=== PATIENT | male | born 1990 | race African-American/Black ===

== ENCOUNTER 2016-08-29 19:25 | Emergency (ER) | payer SELFPAY ==
[2016-08-29] MEDS ORDERED: MAG HYDROX/AL HYDROX/SIMETH SUSP 30 ML UDCUP PO ONE (21:54)
[2016-08-29] MEDS ORDERED: METOCLOPRAMIDE HCL ORAL SOLN 10 MG/10 ML UDCUP PO ONE (21:54)
[2016-08-29] MEDS ORDERED: LIDOCAINE 2% VISCOUS SOLN 20 ML UDCUP PO ONE (21:54)
--- NOTE | 2016-08-29 22:31 | ER Document Report ---
ED General - General Chief Complaint: Difficulty Swallowing Stated Complaint: TROUBLE SWALLOWING Notes: Patient is a 26-year-old male with past medical history of gastroesophageal reflux who presents with a sensation of something being stuck in his chest and epigastric abdominal pain. Does describe the pain is abdomen has a mild, dull, constant, burning pain. Nothing improves or worsens his pain. States his symptoms started after having a heavy meal 36 hours ago. He has a history of similar symptoms in the past. He has not tried anything to improve his symptoms. Nothing been noted to worsen his symptoms. He has not had any vomiting. He has passed flatus and had a bowel movement since onset. No prior history of abdominal surgeries. No cardiac history. Denies any history of DVT or pulmonary embolus. No pleuritic chest pain. TRAVEL OUTSIDE OF THE [place] IN LAST 30 DAYS: No - Related Data Allergies/Adverse Reactions: No Known Allergies Allergy (Verified 08/29/16 19:45) Past Medical History - General Information source: Patient - Social History Smoking Status: Never Smoker Frequency of alcohol use: None Drug Abuse: None Lives with: Spouse/Significant other Family History: Malignancy - father lung cancer Neurological Medical History: Reports: Hx Migraine Renal/ Medical History: Denies: Hx Peritoneal Dialysis - Immunizations Immunizations up to date: No Hx Diphtheria, Pertussis, Tetanus Vaccination: Yes Review of Systems - Review of Systems Notes: Constitutional: Negative for fever. HENT: Negative for sore throat. Eyes: Negative for visual changes. Cardiovascular: Chest discomfort Respiratory: Negative for shortness of breath. Gastrointestinal: Positive for abdominal pain and nausea Genitourinary: Negative for dysuria. Musculoskeletal: Negative for back pain. Skin: Negative for rash. Neurological: Negative for headaches, weakness or numbness. 10 point ROS negative except as marked above and in HPI. Physical Exam - Vital signs Vitals: Temp Pulse Resp BP Pulse Ox 98.8 F 78 22 H 142/93 H 97 08/29/16 19:47 08/29/16 19:47 08/29/16 19:47 08/29/16 19:47 08/29/16 19:47 Interpretation: Normal Notes: PHYSICAL EXAMINATION: GENERAL: Well-appearing, well-nourished and in no acute distress. HEAD: Atraumatic, normocephalic. EYES: Pupils equal round and reactive to light, extraocular movements intact, sclera anicteric, conjunctiva are normal. ENT: nares patent, oropharynx clear without exudates. Moist mucous membranes. NECK: Normal range of motion, supple without lymphadenopathy LUNGS: Breath sounds clear to auscultation bilaterally and equal. No wheezes rales or rhonchi. HEART: Regular rate and rhythm without murmurs ABDOMEN: Soft, mild epigastric tenderness to palpation, normoactive bowel sounds. No guarding, no rebound. No masses appreciated. EXTREMITIES: Normal range of motion, no pitting or edema. No cyanosis. NEUROLOGICAL: No focal neurological deficits. Moves all extremities spontaneously and on command. PSYCH: Normal mood, normal affect. SKIN: Warm, Dry, normal turgor, no rashes or lesions noted. Course - Re-evaluation Re-evalutation: 08/29/16 22:30 Patient presents with epigastric abdominal pain with associated reflux symptoms most consistent with likely gastritis. Patient has no focal abdominal tenderness on examination. Lipase is normal. No LFT changes. Based on history and exam, I do not suspect ACS, pulmonary embolus, SBO, mesenteric ischemia, acute pancreatitis, biliary pathology, or an abdominal aortic dissection. Patient has had improvement of symptoms here with a GI cocktail. At this time will discharge with return precautions and follow-up recommendations. Verbal discharge instructions given a the bedside and opportunity for questions given. Medication warnings reviewed. Patient is in agreement with this plan and has verbalized understanding of return precautions and the need for primary care follow-up in the next 24-72 hours. - Vital Signs Vital signs: Temp Pulse Resp BP Pulse Ox 98.5 F 60 16 137/90 H 99 08/30/16 00:37 08/30/16 00:37 08/30/16 00:37 08/30/16 00:37 08/30/16 00:37 - Laboratory Result Diagrams: 08/29/16 22:50 - EKG Interpretation by Me Additional EKG results interpreted by me: 08/30/16 02:42 Normal sinus rhythm. Rate 69. Early repolarization. QTc is 399. Discharge - Discharge Clinical Impression: Esophageal reflux Qualifiers: Esophagitis presence: with esophagitis Qualified Code(s): K21.0 - Gastro- esophageal reflux disease with esophagitis Condition: Good Disposition: HOME, SELF-CARE Additional Instructions: Your symptoms appear to be most consistent with stomach or upper intestinal irritation. Your evaluation here today has not demonstrated an alternative cause for your symptoms. Please begin taking famotidine 40 mg in the morning and 40 mg at night. This medicine can be purchased directly [id number]. You may also take medicine such as Pepto-Bismol or Tums to assist with your pain. Please follow closely with your primary care doctor in the next 24-48 hours regarding today's emergency department visit. Please return immediately if you develop persistent vomiting, worsening pain, again having bloody bowel movements, develop a fever greater than 100.4F, or have any other symptoms that are worrisome to you.
[2016-08-29 23:26] LABS: ALANINE AMINOTRANSFERASE 46 U/L (21-72); ALBUMIN 4.8 g/dL (3.5-5.0); ALKALINE PHOSPHATASE 105 U/L (38-126); ANION GAP 15 (5-19); ASPARTATE AMINO TRANSFERASE 37 U/L (17-59); BILIRUBIN,DIRECT 0.1 mg/dL (0.0-0.4); BILIRUBIN,TOTAL 0.7 mg/dL (0.2-1.3); BLOOD UREA NITROGEN 16 mg/dL (7-20); CARBON DIOXIDE 24 mmol/L (22-30); CHLORIDE 105 mmol/L (98-107); CREATININE RESULT 0.76 mg/dL (0.52-1.25); GLUCOSE 90 mg/dL (75-110); LIPASE 195.7 U/L (23-300); SODIUM 143.7 mmol/L (137-145); TOTAL PROTEIN 7.7 g/dL (6.3-8.2)
[2016-08-30 00:39] VITALS: BP 137/90
--- NOTE | 2016-08-30 08:28 | EKG REPORT ---
SEVERITY:- NORMAL ECG - SINUS RHYTHM ST ELEV, PROBABLE NORMAL EARLY REPOL PATTERN : Confirmed by: Candida Gannon MD 30-Aug-2016 08:28:17
== END 2016-08-30 00:37 | disposition home or self-care (01) ==
LOC: ER 19:25
DX: K21.0 Gastro-esophageal reflux disease with esophagitis (principal); R10.13 Epigastric pain; R09.89 Other specified symptoms and signs involving the circulatory and respiratory systems; R11.0 Nausea
CPT/HCPCS: 93005; 99284; 36415; 83690; 80053; 84484; 93010; J3490

== ENCOUNTER 2017-11-28 22:31 | Emergency (ER) | payer SELFPAY ==
[2017-11-28 22:38] VITALS: BP 176/110
--- NOTE | 2017-11-28 23:42 | RADIOLOGY REPORT (SQ) ---
PROCEDURE: X-RAY OF THE RIGHT HAND-3 VIEWS CLINICAL HISTORY: Right hand injury INDICATION: M as above COMPARISON: None . TECHNIQUE: 3.0 Views of the right hand were done. FINDINGS: There is no evidence of acute fractures or dislocation involving the bones of the right wrist and hand. There is no visualization of any periosteal reactions. There is no visualization of chondrocalcinosis in the region of the wrist joint. The wrist joint arches are well-maintained. There is no evidence of ulnar variance. There are no focal erosive bony changes. The joint spaces of the hand and the wrist are relatively well-maintained. The bone mineralization is normal for patient's age and sex. The soft tissues are radiographically unremarkable. There is no visualization of any radiopaque foreign bodies in the evaluated soft tissues. If the wrist pain persists, repeat films can be done in 7-10 days interval to rule out occult fractures. Alternatively an MRI of the wrist can be obtained. IMPRESSION: Negative for acute bony trauma involving the right hand Place of interpretation: Teleradiology.
[2017-11-28] MEDS ORDERED: NAPROXEN 250 MG TABLET PO ONE (23:51)
--- NOTE | 2017-11-28 23:53 | ER Document Report ---
ED General - General Chief Complaint: Finger Injury Stated Complaint: RIGHT RING FINGER INJURY Time Seen by Provider: 11/28/17 23:43 Mode of Arrival: Ambulatory Information source: Patient Notes: 27-year-old male presents with crush injury of the finger just prior to arrival. Patient notes that the finger got crushed in a car door, denies any other concerns TRAVEL OUTSIDE OF THE [place] IN LAST 30 DAYS: No - HPI Onset: Just prior to arrival Onset/Duration: Sudden Quality of pain: Achy Severity: Mild Pain Level: 1 Associated symptoms: Other Exacerbated by: Denies Relieved by: Denies Similar symptoms previously: No Recently seen / treated by doctor: No - Related Data Allergies/Adverse Reactions: No Known Allergies Allergy (Verified 08/29/16 19:45) Past Medical History - Social History Smoking Status: Unknown if Ever Smoked Cigarette use (# per day): No Chew tobacco use (# tins/day): No Smoking Education Provided: No Frequency of alcohol use: None Drug Abuse: None Family History: Malignancy - father lung cancer Patient has suicidal ideation: No Patient has homicidal ideation: No Neurological Medical History: Reports: Hx Migraine Renal/ Medical History: Denies: Hx Peritoneal Dialysis - Immunizations Immunizations up to date: No Hx Diphtheria, Pertussis, Tetanus Vaccination: Yes Review of Systems - Review of Systems Notes: REVIEW OF SYSTEMS: CONSTITUTIONAL : Denies fever, chills, or sweats. Denies recent illness. EENT: Denies eye, ear, throat, or mouth pain or symptoms. Denies nasal or sinus congestion or discharge. Denies throat, tongue, or mouth swelling or difficulty swallowing. CARDIOVASCULAR: Denies chest pain. Denies palpitations or racing or irregular heart beat. Denies ankle edema. RESPIRATORY: Denies cough, cold, or chest congestion. Denies shortness of breath, difficulty breathing, or wheezing. GASTROINTESTINAL: Denies abdominal pain or distention. Denies nausea, vomiting , or diarrhea. Denies blood in vomitus, stools, or per rectum. Denies black, tarry stools. Denies constipation. GENITOURINARY: Denies difficulty urinating, painful urination, burning, frequency, blood in urine, or discharge. MUSCULOSKELETAL: Finger injury SKIN: Denies rash, lesions or sores. HEMATOLOGIC : Denies easy bruising or bleeding. LYMPHATIC: Denies swollen, enlarged glands. NEUROLOGICAL: Denies confusion or altered mental status. Denies passing out or loss of consciousness. Denies dizziness or lightheadedness. Denies headache. Denies weakness or paralysis or loss of use of either side. Denies problems with gait or speech. Denies sensory loss, numbness, or tingling. Denies seizures. PSYCHIATRIC: Denies anxiety or stress. Denies depression, suicidal ideation, or homicidal ideation. ALL OTHER SYSTEMS REVIEWED AND NEGATIVE. Dictation was performed using [employer] voice recognition software PHYSICAL EXAMINATION: GENERAL: Well-appearing, well-nourished and in no acute distress. HEAD: Atraumatic, normocephalic. EYES: Pupils equal round and reactive to light, extraocular movements intact, sclera anicteric, conjunctiva are normal. ENT: Nares patent, oropharynx clear without exudates. Moist mucous membranes. NECK: Normal range of motion, supple without lymphadenopathy LUNGS: Breath sounds clear to auscultation bilaterally and equal. No wheezes rales or rhonchi. HEART: Regular rate and rhythm without murmurs ABDOMEN: Soft, nontender, nondistended abdomen. No guarding, no rebound. No masses appreciated. Musculoskeletal: Normal range of motion, no pitting or edema. No cyanosis. NEUROLOGICAL: Cranial nerves grossly intact. Normal speech, normal gait. Normal sensory, motor exams PSYCH: Normal mood, normal affect. SKIN: Mild edema with the right hand fourth digit of the distal phalanx Physical Exam - Vital signs Vitals: Temp Pulse Resp BP Pulse Ox 98.7 F 71 18 176/110 H 98 11/28/17 22:37 11/28/17 22:37 11/28/17 22:37 11/28/17 22:37 11/28/17 22:37 Course - Re-evaluation Re-evalutation: 11/28/17 23:57 Neuro exam is appropriate patient overall looks well, patient given naproxen x- ray was negative patient is stable for discharge After performing a Medical Screening Examination, I estimate there is LOW risk for ACUTE TENDON RUPTURE, COMPARTMENT SYNDROME, or OPEN FRACTURE, thus I consider the discharge disposition reasonable. Also, there is no evidence or peritonitis, sepsis, or toxicity. I have reevaluated this patient multiple times and no significant life threatening changes are noted. The patient and I have discussed the diagnosis and risks, and we agree with discharging home to follow-up with their primary doctor with the understanding that symptoms and presentations can change. We also discussed returning to the Emergency Department immediately if new or worsening symptoms occur. We have discussed the symptoms which are most concerning (e.g., bloody stool, fever, changing or worsening pain, vomiting) that necessitate immediate return. - Vital Signs Vital signs: Temp Pulse Resp BP Pulse Ox 98.7 F 71 18 176/110 H 98 11/28/17 22:37 11/28/17 22:37 11/28/17 22:37 11/28/17 22:37 11/28/17 22:37 - Diagnostic Test Radiology reviewed: Image reviewed, Reports reviewed Discharge - Discharge Clinical Impression: Crush injury Condition: Stable Disposition: HOME, SELF-CARE Instructions: Sprained Finger ([facility]) Additional Instructions: Follow up with your physician tomorrow for further care or return to the ED IMMEDIATELY if symptoms worsen or new concerns occur. If you cannot afford to follow up with your primary care physician a list of low cost clinics have been provided at the end of your discharge papers as well. Prescriptions: Naproxen 500 mg PO BID #10 tablet
== END 2017-11-29 00:10 | disposition home or self-care (01) ==
LOC: ER 22:31
DX: S69.91XA Unspecified injury of right wrist, hand and finger(s), initial encounter (principal); W23.1XXA Caught, crushed, jammed, or pinched between stationary objects, initial encounter
CPT/HCPCS: 99283

== ENCOUNTER 2018-07-07 15:13 | Emergency (ER) | payer SELFPAY ==
[2018-07-07 16:22] VITALS: BP 182/117
[2018-07-07] MEDS ORDERED: OXYCODONE-ACETAMINOPHEN 5-325 MG TABLET PO ONE (16:27)
--- NOTE | 2018-07-07 16:29 | ER Document Report ---
ED General - General Chief Complaint: Toothache Stated Complaint: TOOTHACHE Time Seen by Provider: 07/07/18 16:17 Notes: Patient is a 28-year-old male that presents to the emergency department for chief complaint of left dental pain. Patient's been having this pain for approximately 2 and half weeks now, seemingly in the left lower portion of the back of his mouth. Describes the pain as a constant aching sensation rates it currently as an 8 out of 10, he does not recall taking any teeth off, he is never had dental procedures in the past. Denies any any fevers, chills, night sweats, nausea, vomiting or abdominal pain, no other complaints at this time. Past Medical History: Denies chronic medical conditions Past Surgical History: Denies surgical history Social History: Admits to drinking alcohol socially, denies tobacco or drug use. Family History: Reviewed and noncontributory for presenting illness Allergies: Reviewed, see documented allergy list. REVIEW OF SYSTEMS: Other than noted above, the 12 point review of systems was reviewed with the patient and were negative, all pertinent findings are included in the HPI. PHYSICAL EXAMINATION: Vital signs reviewed, nursing noted reviewed. GENERAL: Well-appearing, well-nourished and in no acute distress. HEAD: Atraumatic, normocephalic. EYES: Eyes appear normal, extraocular movements intact, sclera anicteric, conjunctiva are normal. ENT: nares patent, oropharynx clear without exudates. Moist mucous membranes. The left tooth #17 appears to be impacted up against tooth #18, likely cause the patient's pain, there is mild erythema but no abscess. NECK: Normal range of motion, supple without lymphadenopathy LUNGS: Breath sounds clear to auscultation bilaterally and equal. No wheezes rales or rhonchi. HEART: Regular rate and rhythm without murmurs ABDOMEN: Soft, nontender, normoactive bowel sounds. No rebound, guarding, or rigidity. No masses appreciated. EXTREMITIES: Nontender, good range of motion, no pitting or edema. NEUROLOGICAL: No focal neurological deficits. Moves all extremities spontaneously Motor and sensory grossly intact on exam. PSYCH: Normal mood, normal affect. SKIN: Warm, Dry, normal turgor, no rashes or lesions noted on exposed skin TRAVEL OUTSIDE OF THE [place] IN LAST 30 DAYS: No - Related Data Allergies/Adverse Reactions: No Known Allergies Allergy (Verified 07/07/18 16:23) Past Medical History - Social History Smoking Status: Current Every Day Smoker Chew tobacco use (# tins/day): No Frequency of alcohol use: Social Drug Abuse: None Family History: Malignancy - father lung cancer Patient has suicidal ideation: No Patient has homicidal ideation: No Neurological Medical History: Reports: Hx Migraine Renal/ Medical History: Denies: Hx Peritoneal Dialysis - Immunizations Immunizations up to date: No Hx Diphtheria, Pertussis, Tetanus Vaccination: Yes Physical Exam - Vital signs Vitals: Temp Pulse Resp BP Pulse Ox 98.9 F 68 20 182/117 H 98 07/07/18 15:27 07/07/18 15:27 07/07/18 15:07/07/18 15:27 07/07/18 15:27 Course - Re-evaluation Re-evalutation: Presentation is most consistent with likely an infected tooth versus impacted molar. Airway is patent. Vitals within normal limits. Patient is able swallow without any difficulty. There is no significant facial swelling. No evidence of Jaylan angina, apical abscess, or airway obstruction. Patient will be started on antibiotics. I've instructed to follow-up with dentistry as earliest ability for definitive management. At this time will discharge with return precautions and follow-up recommendations. Verbal discharge instructions given a the bedside and opportunity for questions given. Medication warnings reviewed. Patient is in agreement with this plan and has verbalized understanding of return precautions and the need for primary care follow-up in the next 24-72 hours. - Vital Signs Vital signs: Temp Pulse Resp BP Pulse Ox 98.9 F 68 20 182/117 H 98 07/07/18 15:27 07/07/18 15:27 07/07/18 15:27 07/07/18 15:27 07/07/18 15:27 Discharge - Discharge Clinical Impression: Pain, dental Condition: Stable Disposition: HOME, SELF-CARE Instructions: Toothache ([facility]) Additional Instructions: Below is a list of dental clinics in the area. [facility] [address] [place], [place] [phone] [facility] [address] [place] [address] [place] [id number] [facility] [address] [place] [email or web address] [address] [place] [address] Sunday- 8:00am to 5:00 pm Will see patients from other [facility]. Charges based on income and family size and accepts Medicare, Medicaid, and Insurances Will pull molars [facility] [address] Hours of Operation 8:00 am - 4:30 pm weekdays The following dental offices accept Medicaid: [facility] [address]. [address] Nieves Dr[address] Evans Dr. Gómez Zafar Mendoza [place], and [facility] Dr. Figueredo ([place]) Dr. Keith ([place]) [facility] Drs. Jones ([place]) Dr. Tyler ([place]) [facility] Dr. Amos ([place]) Drs. Paul and ([place]) Medicaid Care Line Prescriptions: Amoxicillin Trihydrate [Amoxil 875 mg Tablet] 1 tab PO BID #14 tablet Naproxen [Naprosyn] 500 mg PO BID PRN #30 tablet PRN Reason: tooth pain
== END 2018-07-07 17:08 | disposition home or self-care (01) ==
LOC: ER 15:13
DX: K08.89 Other specified disorders of teeth and supporting structures (principal); F17.200 Nicotine dependence, unspecified, uncomplicated
CPT/HCPCS: 99282

== ENCOUNTER 2019-05-01 08:43 | Emergency (ER) | payer SELFPAY ==
[2019-05-01 09:38] LABS: ABSOLUTE BASOPHILS # (AUTO) 0.1 10^3/uL (0.0-0.2); ABSOLUTE EOSINOPHILS # (AUTO) 0.2 10^3/uL (0.0-0.6); ABSOLUTE LYMPHOCYTES (AUTO) 1.5 10^3/uL (0.5-4.7); ABSOLUTE MONOCYTES (AUTO) 0.7 10^3/uL (0.1-1.4); ABSOLUTE NEUT (AUTO) 8.3 10^3/uL (1.7-8.2); BASOPHILS % (AUTO) 0.6 % (0-2); EOSINOPHILS % (AUTO) 2.1 % (0-6); HEMATOCRIT 50.4 % (37.9-51.0); HEMOGLOBIN 17.6 g/dL (13.5-17.0); MEAN CORPUSCULAR HEMOGLOBIN 31.8 pg (27.0-33.4); MEAN CORPUSCULAR VOLUME 91 fl (80-97); MONOCYTES % (AUTO) 6.5 % (3-13); PLATELET COUNT 215 10^3/uL (150-450); RED BLOOD COUNT 5.54 10^6/uL (4.35-5.55); RED CELL DISTRIBUTION WIDTH 12.6 % (11.5-14.0); SEGMENTED NEUTROPHILS % (AUTO) 76.8 % (42-78); TOTAL CELLS COUNTED % (AUTO) 100 %; WHITE BLOOD COUNT 10.8 10^3/uL (4.0-10.5)
[2019-05-01 09:46] LABS: ALBUMIN 4.6 g/dL (3.5-5.0); ALKALINE PHOSPHATASE 76 U/L (38-126); ANION GAP 11 (5-19); ASPARTATE AMINO TRANSFERASE 32 U/L (17-59); BILIRUBIN,DIRECT 0.1 mg/dL (0.0-0.4); BILIRUBIN,TOTAL 0.7 mg/dL (0.2-1.3); BLOOD UREA NITROGEN 18 mg/dL (7-20); CALCIUM 10.3 mg/dL (8.4-10.2); CARBON DIOXIDE 28 mmol/L (22-30); CHLORIDE 102 mmol/L (98-107); CREATINE KINASE 151 U/L (55-170); GLUCOSE 88 mg/dL (75-110); POTASSIUM 4.2 mmol/L (3.6-5.0); TOTAL PROTEIN 7.5 g/dL (6.3-8.2)
[2019-05-01] MEDS ORDERED: PANTOPRAZOLE SODIUM 40 MG VIAL IV ONE (09:46)
[2019-05-01 09:58] LABS: CREATINE KINASE MB 0.76 ng/mL (<4.55)
[2019-05-01 10:01] LABS: TROPONIN I < 0.012 ng/mL
[2019-05-01 13:21] VITALS: BP 150/108
--- NOTE | 2019-05-01 13:54 | ER Document Report ---
Entered by SHASTA MCKEE SCRIBE 05/01/19 0933 Acting as scribe for:STEWART PITTS DO ED Cardiac - General Chief Complaint: Chest Pain Stated Complaint: CHEST PAIN/SORE THROAT Time Seen by Provider: 05/01/19 09:33 Mode of Arrival: Ambulatory Information source: Patient Notes: This 29-year-old male patient presents to the emergency department today with co mplaints of reproducible chest pain. Patient checked into this facility yesterday but left without being seen then. Patient states he went to work today and was having the "same symptoms" so decided to come into the emergency department today. Patient states he has had a sensation that his throat is closing and he notices that this seems to be related to him becoming anxious. Patient mentions a sore throat for the last 2 days. Patient denies any new food. TRAVEL OUTSIDE OF THE [place] IN LAST 30 DAYS: No - Related Data Allergies/Adverse Reactions: No Known Allergies Allergy (Verified 05/01/19 08:56) Past Medical History - General Information source: Patient - Social History Smoking Status: Current Every Day Smoker Cigarette use (# per day): Yes Chew tobacco use (# tins/day): No Frequency of alcohol use: Occasional Drug Abuse: None Lives with: Family Family History: Reviewed & Not Pertinent, Malignancy - father lung cancer Patient has suicidal ideation: No Patient has homicidal ideation: No Neurological Medical History: Reports: Hx Migraine - Immunizations Immunizations up to date: No Hx Diphtheria, Pertussis, Tetanus Vaccination: Yes Review of Systems - Review of Systems Constitutional: No symptoms reported EENT: See HPI, Throat pain Cardiovascular: See HPI, Chest pain Respiratory: No symptoms reported Gastrointestinal: No symptoms reported Genitourinary: No symptoms reported Male Genitourinary: No symptoms reported Musculoskeletal: No symptoms reported Skin: No symptoms reported Hematologic/Lymphatic: No symptoms reported Neurological/Psychological: See HPI, Anxiety -: Yes All other systems reviewed and negative Physical Exam - Vital signs Vitals: Temp Pulse Resp BP Pulse Ox 98.4 F 81 14 146/96 H 97 05/01/19 08:56 05/01/19 08:56 05/01/19 08:56 05/01/19 08:56 05/01/19 08:56 Interpretation: Normal - General General appearance: Appears well, Alert - HEENT Head: Normocephalic, Atraumatic Eyes: Normal Pupils: PERRL - Respiratory Respiratory status: No respiratory distress Chest status: Nontender Breath sounds: Normal Chest palpation: Normal - Cardiovascular Rhythm: Regular Heart sounds: Normal auscultation Murmur: No - Abdominal Inspection: Normal Distension: No distension Bowel sounds: Normal Tenderness: Nontender Organomegaly: No organomegaly - Back Back: Normal, Nontender - Extremities General upper extremity: Normal inspection, Nontender, Normal color, Normal ROM, Normal temperature General lower extremity: Normal inspection, Nontender, Normal color, Normal ROM, Normal temperature, Normal weight bearing. No: Guillaume's sign - Neurological Neuro grossly intact: Yes Cognition: Normal Orientation: AAOx4 [place] Coma Scale Eye Opening: Spontaneous [place]ush[place] Coma Scale Verbal: Oriented Anushka Coma Scale Motor: Obeys Commands Anushka Coma Scale Total: 15 Speech: Normal Motor strength normal: LUE, RUE, LLE, RLE Sensory: Normal - Psychological Associated symptoms: Normal affect, Normal mood - Skin Skin Temperature: Warm Skin Moisture: Dry Skin Color: Normal Course - Re-evaluation Re-evalutation: 05/01/19 12:12 Patient is a 29-year-old male with no significant past medical history who comes in complaining of chest pain and throat pain. No acute findings on blood work. He has apparently had the symptoms since at least yesterday. EKG within normal limits. Patient does not want to wait for repeat troponin or XR. He would like to go home as he states that "this is taking too long." Does feel better after Protonix. Likely related to reflux. Patient is instructed to follow-up with his doctor and return if he has any worsening or concerning symptoms. Understands and agrees with plan. Stable for discharge. - Vital Signs Vital signs: Temp Pulse Resp BP Pulse Ox 98.6 F 71 18 150/108 H 98 05/01/19 13:20 05/01/19 13:20 05/01/19 13:20 05/01/19 13:20 05/01/19 13:20 - Laboratory Result Diagrams: 05/01/19 09:12 05/01/19 09:12 Laboratory results interpreted by me: 05/01/19 05/01/19 09:12 09:12 WBC 10.8 H Hgb 17.6 H Absolute Neuts (auto) 8.3 H Calcium 10.3 H - EKG Interpretation by Me EKG shows normal: Sinus rhythm Rate: Normal Rhythm: NSR Discharge - Discharge Clinical Impression: Atypical chest pain Condition: Stable Disposition: HOME, SELF-CARE Instructions: Chest Pain of Unclear Cause ([facility]) Additional Instructions: Please return if you have any worsening or concerning symptoms. Otherwise, please follow-up with your doctor regarding your symptoms. Prescriptions: Omeprazole 20 mg PO DAILY #30 tab.caty. Forms: Return to Work I personally performed the services described in the documentation, reviewed and edited the documentation which was dictated to the scribe in my presence, and it accurately records my words and actions.
--- NOTE | 2019-05-02 15:28 | EKG REPORT ---
SEVERITY:- BORDERLINE ECG - SINUS RHYTHM PROBABLE LEFT ATRIAL ABNORMALITY BORDERLINE LEFT AXIS DEVIATION : Confirmed by: Poonam Reed 02-May-2019 15:27:58
== END 2019-05-01 13:22 | disposition home or self-care (01) ==
LOC: ER 08:43
DX: R07.89 Other chest pain (principal); F41.9 Anxiety disorder, unspecified; R07.0 Pain in throat; R09.89 Other specified symptoms and signs involving the circulatory and respiratory systems; F17.210 Nicotine dependence, cigarettes, uncomplicated
CPT/HCPCS: 36415; 87070; 82553; 87880; 82550; 85025; 86308; 80053; 84484; C9113; 93005; 93010; 96374; 99285

== ENCOUNTER 2020-01-07 21:41 | Emergency (ER) | payer OTHER ==
[2020-01-07] MEDS ORDERED: METOCLOPRAMIDE HCL ORAL SOLN 10 MG/10 ML UDCUP PO ONE (23:17)
[2020-01-07] MEDS ORDERED: LIDOCAINE 2% VISCOUS SOLN 15 ML UDCUP PO ONE (23:17)
[2020-01-07] MEDS ORDERED: MAG HYDROX/AL HYDROX/SIMETH SUSP 30 ML UDCUP PO ONE (23:17)
--- NOTE | 2020-01-07 23:20 | ER Document Report ---
ED Medical Screen (RME) - General Chief Complaint: Chest Pain Stated Complaint: CHEST PAIN Time Seen by Provider: 01/07/20 23:13 Primary Care Provider: JANIS NEWELL PA-C [Primary Care Provider] - Follow up as needed Mode of Arrival: Ambulatory Information source: Patient Notes: 29-year-old male presented to ED for complaint of chest pain since 10:00 this morning. He states he went to [facility] where they did a blood work and EKG. The troponin was negative at that time. They did not do a chest x-ray at that time. He states the pain started about 10:00 when he was mopping the floor. He is alert oriented respirations regular nonlabored speaking in full sentences. States the only medical history he has his migraines. He states he was gas and burping earlier so I have ordered a GI cocktail. He states he does smoke half pack a day does not drink or use any drugs. I have greeted and performed a rapid initial assessment of this patient. A comprehensive ED assessment and evaluation of the patient, analysis of test results and completion of medical decision making process will be conducted by an additional ED providers. TRAVEL OUTSIDE OF THE [place] IN LAST 30 DAYS: No - Related Data Allergies/Adverse Reactions: No Known Allergies Allergy (Verified 05/01/19 08:56) Past Medical History Neurological Medical History: Reports: Hx Migraine Renal/ Medical History: Denies: Hx Peritoneal Dialysis - Immunizations Immunizations up to date: No Hx Diphtheria, Pertussis, Tetanus Vaccination: Yes Physical Exam - Vital signs Vitals: Temp Pulse Resp BP Pulse Ox 98.5 F 69 16 153/101 H 98 01/07/20 22:31 01/07/20 22:31 01/07/20 22:31 01/07/20 22:31 01/07/20 22:31 Course - Vital Signs Vital signs: Temp Pulse Resp BP Pulse Ox 98.5 F 69 16 153/101 H 98 01/07/20 22:31 01/07/20 22:31 01/07/20 22:31 01/07/20 22:31 01/07/20 22:31 Doctor's Discharge - Discharge Referrals: JANIS NEWELL PA-C [Primary Care Provider] - Follow up as needed
--- NOTE | 2020-01-08 00:59 | RADIOLOGY REPORT (SQ) ---
CHEST X-RAY 2 view on 01/08/2020 at 1:23 AM CLINICAL INDICATION: Chest pain COMPARISON: 02/17/2014 FINDINGS: The lungs are clear. Cardiac, hilar and mediastinal contours are within normal limits. Pulmonary vascularity is within normal limits. No bony abnormality is noted. IMPRESSION: No active disease.
[2020-01-08 01:22] LABS: ABSOLUTE BASOPHILS # (AUTO) 0.1 10^3/uL (0.0-0.2); ABSOLUTE EOSINOPHILS # (AUTO) 0.2 10^3/uL (0.0-0.6); ABSOLUTE LYMPHOCYTES (AUTO) 2.2 10^3/uL (0.5-4.7); ABSOLUTE NEUT (AUTO) 8.2 10^3/uL (1.7-8.2); BASOPHILS % (AUTO) 0.9 % (0-2); EOSINOPHILS % (AUTO) 1.9 % (0-6); HEMATOCRIT 47.9 % (37.9-51.0); HEMOGLOBIN 16.3 g/dL (13.5-17.0); LYMPHOCYTES % (AUTO) 18.8 % (13-45); MEAN CORPUSCULAR HEMOGLOBIN 31.1 pg (27.0-33.4); MEAN CORPUSCULAR VOLUME 91 fl (80-97); MONOCYTES % (AUTO) 8.3 % (3-13); PLATELET COUNT 226 10^3/uL (150-450); RED BLOOD COUNT 5.25 10^6/uL (4.35-5.55); RED CELL DISTRIBUTION WIDTH 12.6 % (11.5-14.0); SEGMENTED NEUTROPHILS % (AUTO) 70.1 % (42-78); TOTAL CELLS COUNTED % (AUTO) 100 %; WHITE BLOOD COUNT 11.7 10^3/uL (4.0-10.5)
[2020-01-08 01:34] LABS: ALBUMIN 4.7 g/dL (3.5-5.0); ALKALINE PHOSPHATASE 95 U/L (38-126); ANION GAP 9 (5-19); ASPARTATE AMINO TRANSFERASE 28 U/L (17-59); BILIRUBIN,DIRECT 0.3 mg/dL (0.0-0.4); BILIRUBIN,TOTAL 0.6 mg/dL (0.2-1.3); BLOOD UREA NITROGEN 24 mg/dL (7-20); CALCIUM 10.1 mg/dL (8.4-10.2); CARBON DIOXIDE 24 mmol/L (22-30); CHLORIDE 109 mmol/L (98-107); GLUCOSE 88 mg/dL (75-110); POTASSIUM 4.3 mmol/L (3.6-5.0); TOTAL PROTEIN 7.5 g/dL (6.3-8.2)
[2020-01-08 02:46] VITALS: BP 134/82
--- NOTE | 2020-01-08 10:11 | EKG REPORT ---
SEVERITY:- ABNORMAL ECG - SINUS RHYTHM PROBABLE LEFT ATRIAL ABNORMALITY ABNORMAL Q SUGGESTS ANTERIOR INFARCT : Confirmed by: Candida Gannon MD 08-Jan-2020 10:11:21
== END 2020-01-08 02:47 | disposition left against medical advice (07) ==
LOC: ER 21:41
DX: Z53.20 Procedure and treatment not carried out because of patient's decision for unspecified reasons (principal); R07.9 Chest pain, unspecified
CPT/HCPCS: 93005; 99281; 36415; 83690; 85025; 80053; 84484; 71046; 93010; J3490

== ENCOUNTER → 2020-01-07 | Outpatient (CLI) | payer OTHER | LOC: OD 16:03 | PROVIDERS: ATTEND Physician Assistant Medical | DX: R07.9 Chest pain, unspecified (principal); I10 Essential (primary) hypertension; F17.210 Nicotine dependence, cigarettes, uncomplicated | CPT/HCPCS: 36415; 84484 ==

== ENCOUNTER 2020-01-10 01:37 | Emergency (ER) | payer OTHER ==
[2020-01-10 02:13] LABS: ABSOLUTE BASOPHILS # (AUTO) 0.1 10^3/uL (0.0-0.2); ABSOLUTE EOSINOPHILS # (AUTO) 0.2 10^3/uL (0.0-0.6); ABSOLUTE LYMPHOCYTES (AUTO) 1.8 10^3/uL (0.5-4.7); ABSOLUTE MONOCYTES (AUTO) 0.7 10^3/uL (0.1-1.4); ABSOLUTE NEUT (AUTO) 7.1 10^3/uL (1.7-8.2); HEMATOCRIT 47.1 % (37.9-51.0); HEMOGLOBIN 16.8 g/dL (13.5-17.0); MEAN CORPUSCULAR HGB CONC 35.6 g/dL (32.0-36.0); MEAN CORPUSCULAR VOLUME 90 fl (80-97); MONOCYTES % (AUTO) 7.4 % (3-13); PLATELET COUNT 218 10^3/uL (150-450); RED BLOOD COUNT 5.25 10^6/uL (4.35-5.55); RED CELL DISTRIBUTION WIDTH 11.9 % (11.5-14.0); SEGMENTED NEUTROPHILS % (AUTO) 71.6 % (42-78); TOTAL CELLS COUNTED % (AUTO) 100 %
[2020-01-10 02:33] LABS: ALBUMIN 4.8 g/dL (3.5-5.0); ALKALINE PHOSPHATASE 90 U/L (38-126); ANION GAP 11 (5-19); ASPARTATE AMINO TRANSFERASE 28 U/L (17-59); BILIRUBIN,DIRECT 0.2 mg/dL (0.0-0.4); BILIRUBIN,TOTAL 0.7 mg/dL (0.2-1.3); BLOOD UREA NITROGEN 18 mg/dL (7-20); CALCIUM 9.9 mg/dL (8.4-10.2); CARBON DIOXIDE 24 mmol/L (22-30); CHLORIDE 104 mmol/L (98-107); CREATINE KINASE 138 U/L (55-170); GLUCOSE 98 mg/dL (75-110); POTASSIUM 3.8 mmol/L (3.6-5.0); TOTAL PROTEIN 7.2 g/dL (6.3-8.2)
[2020-01-10 02:40] LABS: CREATINE KINASE MB 0.62 ng/mL (<4.55); TROPONIN I < 0.012 ng/mL
[2020-01-10] MEDS ORDERED: KETOROLAC TROMETHAMINE INJ/PF 30 MG/1 ML SDV IV ONE (03:59)
--- NOTE | 2020-01-10 04:31 | ER Document Report ---
Entered by SUSANA ORTEZ SCRIBE 01/10/20 0358 Acting as scribe for:YAMILE COOK IV, MD ED General - General Chief Complaint: Chest Pain Stated Complaint: CHEST PAIN Time Seen by Provider: 01/10/20 03:49 Primary Care Provider: JANIS NEWELL PA-C [Primary Care Provider] - Follow up as needed Mode of Arrival: Ambulatory Information source: Patient Notes: This 29 year old male patient presents to the ED today with complaints of left-sided chest pain that started x3 days ago while he was mopping a school bus. Patient states that the pain is worse with change in position and deep breaths. Patient was seen at [facility] and here on the day of onset and blood work was drawn. Troponin levels were negative and the chest x-ray done here was unremarkable. Denies any other complaints. TRAVEL OUTSIDE OF THE [place] IN LAST 30 DAYS: No - Related Data Allergies/Adverse Reactions: No Known Allergies Allergy (Verified 05/01/19 08:56) Past Medical History - General Information source: Patient, COUNT INCLUDES THE [facility] Records - Social History Smoking Status: Current Every Day Smoker Cigarette use (# per day): Yes - 0.5 ppd Chew tobacco use (# tins/day): No Smoking Education Provided: No Frequency of alcohol use: Occasional Drug Abuse: None Family History: Reviewed & Not Pertinent, Malignancy - father lung cancer Patient has suicidal ideation: No Patient has homicidal ideation: No Neurological Medical History: Reports: Hx Migraine - Immunizations Immunizations up to date: No Hx Diphtheria, Pertussis, Tetanus Vaccination: Yes Physical Exam - Vital signs Vitals: Pulse Resp BP Pulse Ox 67 22 H 149/96 H 99 01/10/20 01:49 01/10/20 01:49 01/10/20 01:49 01/10/20 01:49 - General General appearance: Appears well, Alert In distress: None - HEENT Head: Normocephalic, Atraumatic Eyes: Normal Pupils: PERRL - Respiratory Respiratory status: No respiratory distress Chest status: Nontender Breath sounds: Normal Chest palpation: Normal - Cardiovascular Rhythm: Regular Heart sounds: Normal auscultation Murmur: No Friction rub: No Gallop: None auscultated - Abdominal Inspection: Normal Distension: No distension Bowel sounds: Normal Tenderness: Nontender - Abdomen soft Organomegaly: No organomegaly - Back Back: Normal, Nontender - Extremities General upper extremity: Normal inspection General lower extremity: Normal inspection - Neurological Neuro grossly intact: Yes Orientation: AAOx4 Lupton Coma Scale Eye Opening: Spontaneous Lupton Coma Scale Verbal: Oriented Anushka Coma Scale Motor: Obeys Commands Lupton Coma Scale Total: 15 - Psychological Associated symptoms: Normal affect, Normal mood - Skin Skin Temperature: Warm Skin Moisture: Dry Skin Color: Normal Course - Re-evaluation Re-evalutation: 01/10/20 05:26 Patient states his chest discomfort is better after receiving Toradol. Patient second troponin is negative. Results of ED MSE discussed with patient. Emergency signs and symptoms, reasons to return to the emergency department discussed with patient. All questions were answered prior to discharge. - Vital Signs Vital signs: Temp Pulse Resp BP Pulse Ox 98.4 F 67 22 H 149/96 H 100 01/10/20 01:56 01/10/20 01:49 01/10/20 01:49 01/10/20 01:49 01/10/20 03:00 - Laboratory Result Diagrams: 01/10/20 02:00 01/10/20 02:00 - Diagnostic Test Radiology reviewed: Reports reviewed - EKG Interpretation by Me Additional EKG results interpreted by me: 01/10/20 05:28 EKG obtained on 01/10/2020 at 0145 hrs. was interpreted by this MD. Findings: Normal sinus rhythm, rate 60, normal axis, P waves proceed QRS complexes, QRS complexes appear narrow, there are no obvious patterns of ST segment elevation or depression present to suggest acute myocardial ischemia or infarction. Impression: Normal sinus rhythm with nonspecific ST segments. Discharge - Discharge Clinical Impression: Chest wall pain Condition: Stable Disposition: HOME, SELF-CARE Instructions: Chest Wall Pain ([facility]) Additional Instructions: Return to the Emergency Department without delay if any worse. You can use [id number] ibuprofen, 3 tablets every 8 hours with food as needed for pain. Take ibuprofen with food as it can otherwise upsets her stomach. Your pain should improve over the next several days. HOME CARE INSTRUCTIONS & INFORMATION: Thank you for choosing us for your medical needs. We hope you're satisfied with the care you received. After you leave, you must properly care for your problem and, at the same time, observe its progress. Any condition can change. Some illnesses can change rapidly over hours or days. If your condition worsens, return to the Emergency Department or see your physician promptly. ABOUT YOUR X-RAYS AND EKG'S: If you had an EKG or X-rays taken, they have been read by the Emergency Physician. The X-rays and EKG's will also be read by a Radiologist or Mortising Machine Operator within 24 hours. If discrepancies are noted, you will be notified by telephone. Please be certain the ED has a correct telephone number & address where you can be reached. Also, realize that some fractures or abnormalities do not show up on initial X-rays. If your symptoms continue, see your physician. ABOUT YOUR LABORATORY TEST: If you had laboratory tests, the results have been reviewed by the Emergency Physician. Some test results (for example cultures) may not be available for several days. You will be contacted if any test result shows you need additional treatment. Please be certain the ED has a correct telephone number and address where you can be reached. ABOUT YOUR MEDICATIONS: You will receive instructions on how to take your medicine on the prescription label you receive. Additional information may be provided by the Pharmacy. If you have questions afterwards, call the ED for clarification or further instructions. Some prescribed medications may cause drowsiness. Do not perform tasks such as driving a car or operating machinery without consulting your Pharmacist. If you feel you need a refill of pain medication, your condition will need re-evaluation. Please do not call for a refill of any medication. ABOUT YOUR SIGNATURE: Signature of this document acknowledges to followin. Understanding that you received emergency treatment and that you may be released before al medical problems are known or treated. Please be certain the ED has a correct phone number & address where you can be reached. 2. Acknowledgement that you will arrange for follow-up care as recommended. 3. Authorization for the Emergency Physician to provide information to your follow-up Physician in order to maximize your care. AT ANY TIME, IF YOUR SYMPTOMS CHANGE SIGNIFICANTLY OR WORSEN OR YOU DEVELOP NEW SYMPTOMS, RETURN TO THE EMERGENCY DEPARTMENT IMMEDIATELY FOR RE-EVALUATION. OUR GOAL IS TO PROVIDE EXCELLENT MEDICAL CARE! WE HOPE THAT WE HAVE MET YOUR EXPECTATIONS DURING YOUR EMERGENCY DEPARTMENT VISIT AND THAT YOU FEEL YOU HAVE RECEIVED EXCELLENT CARE! Referrals: JANIS NEWELL PA-C [Primary Care Provider] - Follow up as needed I personally performed the services described in the documentation, reviewed and edited the documentation which was dictated to the scribe in my presence, and it accurately records my words and actions.
--- NOTE | 2020-01-10 04:53 | RADIOLOGY REPORT (SQ) ---
EXAM DESCRIPTION: XR CHEST 1 VIEW COMPLETED DATE/TME: 01/10/2020 03:59 CLINICAL HISTORY: 29 years, Male, chest pain COMPARISON: 01/08/2020 NUMBER OF VIEWS: One TECHNIQUE: Upright AP view of the chest LIMITATIONS: None. FINDINGS: The lungs are clear. The heart is normal in size. There is no pneumothorax or pleural effusion. No intraperitoneal free air. No acute fracture. IMPRESSION: No acute cardiopulmonary abnormality copyright 2010 [employer]- All Rights Reserved
[2020-01-10 05:52] VITALS: BP 147/91
--- NOTE | 2020-01-10 18:56 | EKG REPORT ---
SEVERITY:- ABNORMAL ECG - SINUS RHYTHM PROBABLE LEFT ATRIAL ABNORMALITY ABNORMAL Q SUGGESTS ANTERIOR INFARCT ST ELEV, PROBABLE NORMAL EARLY REPOL PATTERN : Confirmed by: Candida Gannon MD 10-Jan-2020 18:55:49
== END 2020-01-10 05:52 | disposition home or self-care (01) ==
LOC: ER 01:37
DX: R07.89 Other chest pain (principal); F17.210 Nicotine dependence, cigarettes, uncomplicated
CPT/HCPCS: 93005; 99285; 96374; 36415; 82553; 82550; 85025; 80053; 84484; 71045; 93010; J1885

== ENCOUNTER 2020-03-21 22:23 | Emergency (ER) | payer OTHER | END 2020-03-21 23:43 | disposition left against medical advice (07) | LOC: ER 22:23 | DX: Z53.21 Procedure and treatment not carried out due to patient leaving prior to being seen by health care provider (principal) ==

== ENCOUNTER 2020-03-30 03:05 | Emergency (ER) | payer OTHER ==
[2020-03-30 03:28] VITALS: BP 147/103
== END 2020-03-30 04:28 | disposition left against medical advice (07) ==
LOC: ER 03:05
DX: Z53.21 Procedure and treatment not carried out due to patient leaving prior to being seen by health care provider (principal)